=== PATIENT | female | born 1980 | race Caucasian/White ===

== ENCOUNTER 2017-01-10 02:09 | Emergency (ER) | payer OTHER ==
[2017-01-10 04:18] VITALS: BP 141/90
== END 2017-01-10 04:18 | disposition home or self-care (01) ==
LOC: ED 02:09
DX: M54.5 Low back pain (principal); R07.89 Other chest pain; V49.9XXA Car occupant (driver) (passenger) injured in unspecified traffic accident, initial encounter; Y93.89 Activity, other specified; Y99.8 Other external cause status; Y92.89 Other specified places as the place of occurrence of the external cause
CPT/HCPCS: 72072; J1170; Q0162

== ENCOUNTER 2017-10-23 20:43 | Emergency (ER) | payer OTHER ==
[~2017-10-23] VITALS: Ht 165.1 cm; Wt 111.6 kg
[2017-10-23 20:55] VITALS: Ht 165.1 cm; Wt 111.6 kg
[2017-10-24 00:12] VITALS: BP 145/90
== END 2017-10-24 00:12 | disposition home or self-care (01) ==
LOC: ED 20:43
DX: J20.9 Acute bronchitis, unspecified (principal); F12.90 Cannabis use, unspecified, uncomplicated
CPT/HCPCS: J7613; J7644; Q0092

== ENCOUNTER 2017-11-30 18:20 | Emergency (ER) | payer OTHER ==
[~2017-11-30] VITALS: Ht 167.6 cm; Wt 108.9 kg
[2017-11-30 18:30] VITALS: Ht 167.6 cm; Wt 108.9 kg
[2017-11-30 21:11] VITALS: BP 133/85
== END 2017-11-30 21:11 | disposition home or self-care (01) ==
LOC: ED 18:20
DX: M54.5 Low back pain (principal)
CPT/HCPCS: J1885